=== PATIENT | female | born 1970 | race Caucasian/White ===

== ENCOUNTER 2024-03-15 15:22 | Emergency (ER) | payer OTHER ==
[2024-03-15 15:29] LABS: BASOPHILS ABSOLUTE AUTO 0.02 K/uL (0.00-0.20); BASOPHILS PERCENT AUTO 0.3 % (0.0-2.0); EOSINOPHILS ABSOLUTE AUTO 0.17 K/uL (0.00-0.50); EOSINOPHILS PERCENT AUTO 2.4 % (0.0-5.0); HEMATOCRIT 38.9 % (34.0-46.0); LYMPHOCYTES ABSOLUTE AUTO 3.91 K/uL (0.50-3.50); LYMPHOCYTES PERCENT AUTO 54.5 % (10.0-50.0); MEAN CORPUSCULAR HEMOGLOBIN 30.4 pg (28.2-33.3); MEAN CORPUSCULAR HGB CONC 33.4 g/dL (31.7-36.0); MEAN CORPUSCULAR VOLUME 90.9 fL (84.0-98.0); MONOCYTES ABSOLUTE AUTO 0.27 K/uL (0.00-1.00); MONOCYTES PERCENT AUTO 3.8 % (2.0-14.0); PLATELET COUNT,PLT 300 K/uL (150-350); RED BLOOD CELL COUNT 4.28 M/uL (3.77-5.09); RED CELL DISTRIBUTION WIDTH 13.8 % (11.2-14.1); WHITE BLOOD CELL COUNT,WBC 7.2 K/uL (4.0-10.2)
[2024-03-15] MEDS ORDERED: Ondansetron 4 MG/2 ML SDV ONE (15:43)
[2024-03-15] MEDS ORDERED: Heparin Sodium/0.45% NaCl 500 ML IV SCH ×2 (15:45→16:45)
[2024-03-15] MEDS ORDERED: Ondansetron 4 MG/2 ML SDV IVPUSH ONE (15:46)
[2024-03-15] MEDS ORDERED: Naloxone 0.4 MG/ML SDV IVPUSH PRN (15:46)
[2024-03-15 15:49] LABS: ALANINE AMINOTRANSFERASE,ALT 408 U/L (12-78); ALBUMIN 3.4 g/dL (3.4-5.0); ALKALINE PHOSPHATASE 80 IU/L (46-116); ANION GAP 21.8 meq/L (7-15); ASPARTATE AMNIOTRANSFERASE,AST 417 U/L (15-37); BILIRUBIN TOTAL 0.3 mg/dL (0.2-1.0); BLOOD UREA NITROGEN,BUN 12 mg/dL (7-18); CALCIUM 8.7 mg/dL (8.5-10.1); CARBON DIOXIDE,CO2 17.6 mmol/L (21.0-32.0); CHLORIDE,CL 104 mmol/L (98-107); CREATININE 1.35 mg/dL (0.51-1.17); ESTIMATED GFR 46 mL/min (>=60); GLUCOSE RANDOM 248 mg/dL (70-99); POTASSIUM,K 3.4 mmol/L (3.5-5.1); PROTEIN TOTAL,TP 7.5 g/dL (6.4-8.2); SODIUM,NA 140 mmol/L (136-145)
[2024-03-15 15:52] LABS: PROTHROMBIN TIME 10.3 SEC (9.0-11.1)
[2024-03-15] MEDS: Morphine 2 MG/ML SYRINGE ONE (15:54)
[2024-03-15] MEDS ORDERED: Sodium Chloride 0.9% 1,000 ML IV ONE (15:55)
[2024-03-15] MEDS: Heparin Sodium 5,000 Units/ML Vial IVPUSH ONE (15:58)
[2024-03-15] MEDS: Clopidogrel 75 MG Tab PO ONE (15:58)
[2024-03-15] MEDS: Tenecteplase 50 MG Kit IV ONE (16:06)
[2024-03-15] MEDS: Morphine 4 MG/ML Syringe IVPUSH ONE (16:12)
[2024-03-15] MEDS: Morphine 2 MG/ML SYRINGE IVPUSH ONE (17:00)
== END 2024-03-15 16:39 ==
LOC: LL.ED 15:22
DX: I46.9 Cardiac arrest, cause unspecified (principal); I21.3 ST elevation (STEMI) myocardial infarction of unspecified site; R79.1 Abnormal coagulation profile; R94.5 Abnormal results of liver function studies; R74.02 Elevation of levels of lactic acid dehydrogenase [LDH]; F17.200 Nicotine dependence, unspecified, uncomplicated
CPT/HCPCS: 36415; 71045; 80053; 80307; 82947; 83605; 83880; 84484; 85025; 85379; 85610; 85730; 92950; 93005; 96361; 96374; 96375; 99291; 99292; A9270; J1644; J2270; J3101